=== PATIENT | female | born 1945 | race Caucasian/White ===

== ENCOUNTER 2022-12-23 09:35 | Inpatient (IN) | payer MEDICARE ==
[~2022-12-23] VITALS: Ht 162.6 cm; Wt 83.6 kg
[2022-12-23] VITALS (24 sets, daily range): BP systolic 62–122
[2022-12-23] MEDS ORDERED: NACL 0.9% 1,000 ML IV ONE ×2 (10:00→14:15)
[2022-12-23 10:39] LABS: BASOPHILS % (AUTO) 0.3 % (0.0-2.0); EOSINOPHILS % (AUTO) 0.3 % (0.0-4.0); HEMATOCRIT 42.5 % (36-48); HEMOGLOBIN 13.7 g/dL (12.0-16.0); LYMPHOCYTES # (AUTO) 0.9 K/uL (1.0-5.5); LYMPHOCYTES % (AUTO) 30.2 % (20.5-51.5); MEAN CORPUSCULAR HEMOGLOBIN 30 pg (27-31); MEAN CORPUSCULAR HGB CONC 32 % (32-36); MEAN CORPUSCULAR VOLUME 94 fL (79.0-98.0); MONOCYTES # (AUTO) 0.1 K/uL (0.0-1.0); MONOCYTES % (AUTO) 4.4 % (1.7-9.3); NEUTROPHILS % (AUTO) 64.8 % (40.0-70.0); PLATELET COUNT (AUTO) 204 K/uL (130-430); RED BLOOD CELL COUNT(AUTO) 4.54 MIL/uL (4.2-6.2)
[2022-12-23 10:47] LABS: ANION GAP 17 (5-15); CALCIUM 8.7 mg/dL (8.4-11.0); CHLORIDE 102 mmol/L (98-107); CREATININE 1.73 mg/dL (0.55-1.30); GLUCOSE 114 mg/dL (70-99); UREA NITROGEN, BLOOD 40 mg/dL (8-21)
[2022-12-23 10:51] LABS: ALANINE AMINOTRANSFERASE 29 U/L (12-78); ALBUMIN 3.6 g/dL (3.4-4.8); ASPARTATE AMINOTRANSFERASE 38 U/L (10-37); LIPASE 82 U/L (73-393); TOTAL BILIRUBIN 0.8 mg/dL (0.0-1.0)
[2022-12-23 11:58] LABS: BILIRUBIN,URINE NEGATIVE (NEGATIVE); BLOOD, URINE NEGATIVE (NEGATIVE); CLARITY/URINE CLEAR (CLEAR); COLOR,URINE YELLOW (YELLOW); GLUCOSE,URINE NEGATIVE (NEGATIVE); KETONES,URINE NEGATIVE (NEGATIVE); LEUKOCYTE ESTERASE ,URINE NEGATIVE (NEGATIVE); NITRITE, URINE NEGATIVE (NEGATIVE); PH,URINE 5.5 (5.0-8.0); PROTEIN URINE NEGATIVE (NEGATIVE); UROBILINOGEN,URINE 0.2 (0.2-1.0)
[2022-12-23] MEDS ORDERED: VANCOMYCIN HCL 1,000 MG in NS 250 ML IV ONE (12:30)
[2022-12-23] MEDS ORDERED: LORazepam 2 MG/ML VIAL IVP ONE (12:45)
[2022-12-23] MEDS ORDERED: metroNIDAZOLE 500 mg/NS 100 ML IV ONE (13:00)
[2022-12-23] MEDS ORDERED: LIP80 PO (13:45)
[2022-12-23] MEDS ORDERED: CYM30 PO (13:45)
[2022-12-23] MEDS ORDERED: CARV25TA55 PO (13:45)
[2022-12-23] MEDS ORDERED: ACYC400T19 PO (13:45)
[2022-12-23] MEDS ORDERED: APIX2.5T PO (13:45)
[2022-12-23] MEDS ORDERED: FURO-150 PO (13:45)
[2022-12-23] MEDS ORDERED: AMIO200T66 PO (13:45)
[2022-12-23] MEDS ORDERED: CAT3PAT TD (13:45)
[2022-12-23] MEDS ORDERED: GABA800T PO (13:45)
[2022-12-23] MEDS ORDERED: D5/0.45 NS 1,000 ML IV ONE (14:00)
[2022-12-23] MEDS ORDERED: NOREPINEPHRINE BITARTRATE 4 MG in NS 246 ML IV PRN ×2 (14:00→14:14)
[2022-12-23] MEDS ORDERED: PROPOFOL DRIP 100 ML IV PRN (14:00)
[2022-12-23] MEDS ORDERED: MIDAZOLAM IN NACL,ISO-OSMOT/PF 100 ML IV PRN (14:15)
[2022-12-23] MEDS ORDERED: LORAZEPAM IV PRN (14:15)
[2022-12-23] MEDS ORDERED: NS IV PRN (14:15)
[2022-12-23] MEDS ORDERED: SUCCINYLCHOLINE CHLORIDE 20 MG/ML(QUELICIN) IVP ONE ×2 (14:15→15:07)
[2022-12-23] MEDS ORDERED: ETOMIDATE 20 MG/ 10 ML VIAL (AMIDATE) IVP ONE (14:15)
[2022-12-23] MEDS: PROPOFOL DRIP 100 ML IV PRN (14:56)
[2022-12-23] MEDS ORDERED: NOREPINEPHRINE 4 MG/4 ML VIAL IV ONE ×2 (15:03→23:52)
[2022-12-23] MEDS ORDERED: VANCOMYCIN HCL 1000 MG/VIAL IV ONE (16:02)
[2022-12-23] MEDS ORDERED: ROCURONIUM BROMIDE 10 MG/ML (ZEMURON) ONE (17:30)
[2022-12-23] MEDS ORDERED: PROPOFOL 200MG/ 20ML VIAL (DIPRIVAN) IV ONE (17:30)
[2022-12-23] MEDS ORDERED: BUPIVACAINE /PF 0.25% 30 ML VIAL INJ ONE (17:30)
[2022-12-23] MEDS ORDERED: LR 1,000 ML IV.SOLN IV ONE (17:30)
[2022-12-23] MEDS ORDERED: NS IRRIG SOLN 1000 ML IR ONE (17:30)
[2022-12-23] MEDS ORDERED: LORazepam 2 MG/ML VIAL IVP PRN (18:30)
[2022-12-23] MEDS ORDERED: fentaNYL CITRATE/PF 100 MCG/2 ML AMP IVP PRN ×2 (18:30)
[2022-12-23] MEDS ORDERED: ONDANSETRON HCL 4 MG/2 ML VIAL IVP PRN (18:30)
[2022-12-23] MEDS ORDERED: FLUCONAZOLE IN NACL,ISO-OSM 200 ML IV SCH (19:15)
[2022-12-23] MEDS ORDERED: PHENTOLAMINE MESYLATE 5 MG VIAL INJ ONE ×2 (19:45→20:00)
[2022-12-23] MEDS ORDERED: TERBUTALINE SULFATE 1 MG/ML VIAL SUBCUT SCH (21:30)
[2022-12-23] MEDS ORDERED: TERBUTALINE SULFATE 1 MG/ML VIAL ONE (22:01)
[2022-12-24] VITALS (29 sets, daily range): BP systolic 84–125
[2022-12-24 00:13] LABS: BASOPHILS % (AUTO) 0.2 % (0.0-2.0); EOSINOPHILS % (AUTO) 0.1 % (0.0-4.0); HEMATOCRIT 42.8 % (36-48); HEMOGLOBIN 13.8 g/dL (12.0-16.0); LYMPHOCYTES # (AUTO) 1.3 K/uL (1.0-5.5); LYMPHOCYTES % (AUTO) 16.3 % (20.5-51.5); MEAN CORPUSCULAR HEMOGLOBIN 30 pg (27-31); MEAN CORPUSCULAR HGB CONC 32 % (32-36); MEAN CORPUSCULAR VOLUME 93 fL (79.0-98.0); MONOCYTES # (AUTO) 0.6 K/uL (0.0-1.0); MONOCYTES % (AUTO) 7.8 % (1.7-9.3); NEUTROPHILS # (AUTO) 5.9 K/uL (1.8-7.7); NEUTROPHILS % (AUTO) 75.6 % (40.0-70.0); PLATELET COUNT (AUTO) 206 K/uL (130-430); RED BLOOD CELL COUNT(AUTO) 4.62 MIL/uL (4.2-6.2); RED CELL DISTRIBUTION WIDTH 18.2 % (9.0-15.0); WHITE BLOOD COUNT (AUTO) 7.8 K/uL (4.8-10.8)
[2022-12-24 00:27] LABS: ANION GAP 16 (5-15); CALCIUM 7.5 mg/dL (8.4-11.0); CHLORIDE 106 mmol/L (98-107); CREATININE 2.41 mg/dL (0.55-1.30); GLUCOSE 99 mg/dL (70-99); UREA NITROGEN, BLOOD 42 mg/dL (8-21)
[2022-12-24 00:31] LABS: ALANINE AMINOTRANSFERASE 30 U/L (12-78); ALBUMIN 2.8 g/dL (3.4-4.8); ASPARTATE AMINOTRANSFERASE 52 U/L (10-37); PHOSPHORUS 5.7 mg/dL (2.7-4.5); TOTAL BILIRUBIN 0.7 mg/dL (0.0-1.0)
[2022-12-24 02:38] LABS: INR 1.4 (0.8-1.2)
[2022-12-24] MEDS ORDERED: NOREPINEPHRINE 4 MG/4 ML VIAL IV ONE (03:38)
[2022-12-24] MEDS: NOREPINEPHRINE BITARTRATE 16 MG in NS 234 ML IV PRN ×3 (03:43→21:19)
[2022-12-24 06:45] LABS: BASOPHILS % (AUTO) 0.2 % (0.0-2.0); HEMATOCRIT 41.8 % (36-48); HEMOGLOBIN 13.7 g/dL (12.0-16.0); LYMPHOCYTES # (AUTO) 1.9 K/uL (1.0-5.5); LYMPHOCYTES % (AUTO) 13.6 % (20.5-51.5); MEAN CORPUSCULAR HEMOGLOBIN 31 pg (27-31); MEAN CORPUSCULAR HGB CONC 33 % (32-36); MEAN CORPUSCULAR VOLUME 94 fL (79.0-98.0); MONOCYTES # (AUTO) 1.2 K/uL (0.0-1.0); MONOCYTES % (AUTO) 8.6 % (1.7-9.3); NEUTROPHILS # (AUTO) 10.8 K/uL (1.8-7.7); NEUTROPHILS % (AUTO) 77.6 % (40.0-70.0); PLATELET COUNT (AUTO) 204 K/uL (130-430); RED BLOOD CELL COUNT(AUTO) 4.47 MIL/uL (4.2-6.2); RED CELL DISTRIBUTION WIDTH 18.4 % (9.0-15.0)
[2022-12-24] MEDS: PROPOFOL DRIP 100 ML IV PRN ×2 (06:46→17:54)
[2022-12-24] MEDS: FLUCONAZOLE IN NACL,ISO-OSM 200 ML IV SCH (07:01)
[2022-12-24] MEDS ORDERED: NACL 0.9% 1,000 ML IV ONE (07:30)
[2022-12-24 07:47] LABS: ALANINE AMINOTRANSFERASE 33 U/L (12-78); ALBUMIN 2.6 g/dL (3.4-4.8); ANION GAP 19 (5-15); ASPARTATE AMINOTRANSFERASE 55 U/L (10-37); CALCIUM 8.1 mg/dL (8.4-11.0); CHLORIDE 106 mmol/L (98-107); CREATININE 2.44 mg/dL (0.55-1.30); GLUCOSE 79 mg/dL (70-99); PHOSPHORUS 5.2 mg/dL (2.7-4.5); TOTAL BILIRUBIN 0.7 mg/dL (0.0-1.0); UREA NITROGEN, BLOOD 43 mg/dL (8-21)
[2022-12-24] MEDS ORDERED: COMMUNICATION ORDER XX ONE (08:30)
[2022-12-24] MEDS: D5/0.45 NS 1,000 ML IV SCH ×2 (09:15→19:26)
[2022-12-24] MEDS: metroNIDAZOLE 500 mg/NS 100 ML PREMIX IV SCH ×2 (13:42→21:18)
[2022-12-24] MEDS ORDERED: AZTREONAM 1 GM VIAL ONE (21:40)
[2022-12-24] MEDS: AZTREONAM 0.5 GM in NS 50 ML IV SCH (22:14)
[2022-12-25] VITALS (29 sets, daily range): BP systolic 98–147
[2022-12-25] MEDS: PROPOFOL DRIP 100 ML IV PRN (04:58)
[2022-12-25] MEDS: NOREPINEPHRINE BITARTRATE 16 MG in NS 234 ML IV PRN (05:00)
[2022-12-25] MEDS: D5/0.45 NS 1,000 ML IV SCH (05:50)
[2022-12-25] MEDS: metroNIDAZOLE 500 mg/NS 100 ML PREMIX IV SCH ×3 (05:51→22:00)
[2022-12-25] MEDS: AZTREONAM 0.5 GM in NS 50 ML IV SCH ×3 (05:51→22:00)
[2022-12-25] MEDS: FLUCONAZOLE IN NACL,ISO-OSM 200 ML IV SCH (05:52)
[2022-12-25 06:24] LABS: BASOPHILS % (AUTO) 0.3 % (0.0-2.0); HEMATOCRIT 38.6 % (36-48); HEMOGLOBIN 12.6 g/dL (12.0-16.0); LYMPHOCYTES # (AUTO) 1.2 K/uL (1.0-5.5); LYMPHOCYTES % (AUTO) 7.9 % (20.5-51.5); MEAN CORPUSCULAR HEMOGLOBIN 30 pg (27-31); MEAN CORPUSCULAR HGB CONC 33 % (32-36); MEAN CORPUSCULAR VOLUME 91 fL (79.0-98.0); MONOCYTES # (AUTO) 0.9 K/uL (0.0-1.0); MONOCYTES % (AUTO) 6.2 % (1.7-9.3); NEUTROPHILS # (AUTO) 12.5 K/uL (1.8-7.7); NEUTROPHILS % (AUTO) 85.6 % (40.0-70.0); PLATELET COUNT (AUTO) 153 K/uL (130-430); RED BLOOD CELL COUNT(AUTO) 4.22 MIL/uL (4.2-6.2); RED CELL DISTRIBUTION WIDTH 18.9 % (9.0-15.0); WHITE BLOOD COUNT (AUTO) 14.6 K/uL (4.8-10.8)
[2022-12-25 06:54] LABS: ANION GAP 18 (5-15); CALCIUM 7.9 mg/dL (8.4-11.0); CHLORIDE 107 mmol/L (98-107); CREATININE 2.99 mg/dL (0.55-1.30); GLUCOSE 89 mg/dL (70-99); PHOSPHORUS 5.2 mg/dL (2.7-4.5); UREA NITROGEN, BLOOD 54 mg/dL (8-21)
[2022-12-25 07:13] LABS: C-REACTIVE PROTEIN QUANT 32.4 mg/dL (0-0.5)
[2022-12-25 08:43] LABS: ERYTHROCYTE SEDIMENTATION RATE 16 MM/HR (0-20)
[2022-12-25] MEDS ORDERED: *TPN PER PHARMACY XX PRN (11:15)
[2022-12-25] MEDS: DEXTROSE 50% JECT 50 ML DISP.SYRIN IVP PRN ×2 (12:23→15:05)
[2022-12-25] MEDS: D5W 1,000 ML IV SCH (15:30)
[2022-12-25] MEDS ORDERED: SODIUM ACETATE IV SCH ×7 (21:00)
[2022-12-25] MEDS ORDERED: TPN NEPHRAMINE IV SCH ×7 (21:00)
[2022-12-25] MEDS ORDERED: [UNRECOGNIZED DRUG - OTHER] IV SCH ×7 (21:00)
[2022-12-25] MEDS ORDERED: MAGNESIUM SULFATE IV SCH ×7 (21:00)
[2022-12-26] VITALS (36 sets, daily range): BP systolic 84–183
[2022-12-26] MEDS: D5W 1,000 ML IV SCH ×3 (01:39→20:48)
[2022-12-26] MEDS: FLUCONAZOLE IN NACL,ISO-OSM 200 ML IV SCH (05:25)
[2022-12-26] MEDS: metroNIDAZOLE 500 mg/NS 100 ML PREMIX IV SCH ×3 (05:25→21:03)
[2022-12-26] MEDS: AZTREONAM 0.5 GM in NS 50 ML IV SCH ×3 (05:25→21:03)
[2022-12-26 06:20] LABS: BASOPHILS % (AUTO) 0.3 % (0.0-2.0); EOSINOPHILS % (AUTO) 0.2 % (0.0-4.0); HEMATOCRIT 33.7 % (36-48); HEMOGLOBIN 11.2 g/dL (12.0-16.0); LYMPHOCYTES # (AUTO) 0.7 K/uL (1.0-5.5); LYMPHOCYTES % (AUTO) 9.4 % (20.5-51.5); MEAN CORPUSCULAR HEMOGLOBIN 30 pg (27-31); MEAN CORPUSCULAR HGB CONC 33 % (32-36); MEAN CORPUSCULAR VOLUME 92 fL (79.0-98.0); MONOCYTES # (AUTO) 0.3 K/uL (0.0-1.0); MONOCYTES % (AUTO) 4.1 % (1.7-9.3); NEUTROPHILS # (AUTO) 6.2 K/uL (1.8-7.7); PLATELET COUNT (AUTO) 103 K/uL (130-430); RED BLOOD CELL COUNT(AUTO) 3.68 MIL/uL (4.2-6.2); RED CELL DISTRIBUTION WIDTH 18.2 % (9.0-15.0); WHITE BLOOD COUNT (AUTO) 7.2 K/uL (4.8-10.8)
[2022-12-26 06:45] LABS: ALANINE AMINOTRANSFERASE 20 U/L (12-78); ALBUMIN 1.7 g/dL (3.4-4.8); ANION GAP 14 (5-15); ASPARTATE AMINOTRANSFERASE 24 U/L (10-37); CALCIUM 7.7 mg/dL (8.4-11.0); CHLORIDE 108 mmol/L (98-107); GLUCOSE 132 mg/dL (70-99); PHOSPHORUS 2.2 mg/dL (2.7-4.5); TOTAL BILIRUBIN 0.4 mg/dL (0.0-1.0); TRIGLYCERIDES 148 mg/dL (30-150); UREA NITROGEN, BLOOD 49 mg/dL (8-21)
[2022-12-26] MEDS ORDERED: KCL 40 mEq in 100 mL (PREMIX) 100 ML IV ONE (08:00)
[2022-12-26 08:27] LABS: C-REACTIVE PROTEIN QUANT 27.2 mg/dL (0-0.5)
[2022-12-26 09:44] LABS: ERYTHROCYTE SEDIMENTATION RATE 23 MM/HR (0-20)
[2022-12-26] MEDS ORDERED: K PHOS 15 MM in NS 250 ML IV ONE (12:00)
[2022-12-26] MEDS: PROPOFOL DRIP 100 ML IV PRN (15:05)
[2022-12-26] MEDS ORDERED: TPN NEPHRAMINE IV SCH ×9 (21:00)
[2022-12-26] MEDS ORDERED: MAGNESIUM SULFATE IV SCH ×9 (21:00)
[2022-12-26] MEDS ORDERED: [UNRECOGNIZED DRUG - OTHER] IV SCH ×9 (21:00)
[2022-12-26] MEDS ORDERED: SODIUM ACETATE IV SCH ×9 (21:00)
[2022-12-27] VITALS (40 sets, daily range): BP systolic 81–181
[2022-12-27] MEDS: FENTANYL CITRATE-0.9 % NACL/PF 100 ML IV PRN ×2 (04:10→21:49)
[2022-12-27] MEDS: AZTREONAM 0.5 GM in NS 50 ML IV SCH ×3 (06:21→21:46)
[2022-12-27] MEDS: metroNIDAZOLE 500 mg/NS 100 ML PREMIX IV SCH ×3 (06:21→21:47)
[2022-12-27] MEDS: FLUCONAZOLE IN NACL,ISO-OSM 200 ML IV SCH (06:22)
[2022-12-27] MEDS: D5W 1,000 ML IV SCH ×3 (06:22→22:23)
[2022-12-27 07:26] LABS: ALANINE AMINOTRANSFERASE 20 U/L (12-78); ALBUMIN 1.6 g/dL (3.4-4.8); ANION GAP 14 (5-15); ASPARTATE AMINOTRANSFERASE 23 U/L (10-37); C-REACTIVE PROTEIN QUANT 14.9 mg/dL (0-0.5); CALCIUM 7.5 mg/dL (8.4-11.0); CHLORIDE 108 mmol/L (98-107); CREATININE 1.11 mg/dL (0.55-1.30); GLUCOSE 166 mg/dL (70-99); TOTAL BILIRUBIN 0.7 mg/dL (0.0-1.0); UREA NITROGEN, BLOOD 38 mg/dL (8-21)
[2022-12-27 09:20] LABS: BASOPHILS % (AUTO) 0.2 % (0.0-2.0); EOSINOPHILS % (AUTO) 0.3 % (0.0-4.0); HEMATOCRIT 33.2 % (36-48); HEMOGLOBIN 11.3 g/dL (12.0-16.0); LYMPHOCYTES # (AUTO) 1.2 K/uL (1.0-5.5); LYMPHOCYTES % (AUTO) 14.1 % (20.5-51.5); MEAN CORPUSCULAR HEMOGLOBIN 31 pg (27-31); MEAN CORPUSCULAR HGB CONC 34 % (32-36); MEAN CORPUSCULAR VOLUME 89 fL (79.0-98.0); MONOCYTES # (AUTO) 0.5 K/uL (0.0-1.0); MONOCYTES % (AUTO) 6.5 % (1.7-9.3); NEUTROPHILS # (AUTO) 6.5 K/uL (1.8-7.7); NEUTROPHILS % (AUTO) 78.9 % (40.0-70.0); PLATELET COUNT (AUTO) 95 K/uL (130-430); RED BLOOD CELL COUNT(AUTO) 3.71 MIL/uL (4.2-6.2); RED CELL DISTRIBUTION WIDTH 17.6 % (9.0-15.0); WHITE BLOOD COUNT (AUTO) 8.2 K/uL (4.8-10.8)
[2022-12-27 09:33] LABS: ERYTHROCYTE SEDIMENTATION RATE 23 MM/HR (0-20)
[2022-12-27] MEDS ORDERED: K PHOS 15 MM in NS 250 ML IV ONE (10:15)
[2022-12-27] MEDS ORDERED: POTASSIUM ACETATE IV SCH ×9 (21:00)
[2022-12-27] MEDS ORDERED: TPN NEPHRAMINE IV SCH ×9 (21:00)
[2022-12-27] MEDS ORDERED: [UNRECOGNIZED DRUG - OTHER] IV SCH ×9 (21:00)
[2022-12-27] MEDS ORDERED: SODIUM ACETATE IV SCH ×9 (21:00)
[2022-12-27] MEDS: INSULIN REGULAR, HUMAN 100 UNITS/ML, 3 ML VIAL (humuLIN R) SUBCUT PRN (23:46)
[2022-12-28] VITALS (30 sets, daily range): BP systolic 71–187
[2022-12-28] MEDS: AZTREONAM 0.5 GM in NS 50 ML IV SCH ×3 (05:20→21:23)
[2022-12-28] MEDS: FLUCONAZOLE IN NACL,ISO-OSM 200 ML IV SCH (05:20)
[2022-12-28] MEDS: metroNIDAZOLE 500 mg/NS 100 ML PREMIX IV SCH ×3 (05:20→23:01)
[2022-12-28 06:08] LABS: BASOPHILS % (AUTO) 0.3 % (0.0-2.0); EOSINOPHILS % (AUTO) 0.3 % (0.0-4.0); HEMATOCRIT 32.3 % (36-48); HEMOGLOBIN 10.9 g/dL (12.0-16.0); LYMPHOCYTES # (AUTO) 1.2 K/uL (1.0-5.5); MEAN CORPUSCULAR HEMOGLOBIN 31 pg (27-31); MEAN CORPUSCULAR HGB CONC 34 % (32-36); MEAN CORPUSCULAR VOLUME 91 fL (79.0-98.0); MONOCYTES # (AUTO) 0.7 K/uL (0.0-1.0); MONOCYTES % (AUTO) 8.2 % (1.7-9.3); NEUTROPHILS # (AUTO) 6.2 K/uL (1.8-7.7); NEUTROPHILS % (AUTO) 76.2 % (40.0-70.0); PLATELET COUNT (AUTO) 79 K/uL (130-430); RED BLOOD CELL COUNT(AUTO) 3.54 MIL/uL (4.2-6.2); RED CELL DISTRIBUTION WIDTH 17.2 % (9.0-15.0); WHITE BLOOD COUNT (AUTO) 8.1 K/uL (4.8-10.8)
[2022-12-28 06:40] LABS: ALANINE AMINOTRANSFERASE 19 U/L (12-78); ALBUMIN 1.6 g/dL (3.4-4.8); ANION GAP 9 (5-15); ASPARTATE AMINOTRANSFERASE 24 U/L (10-37); C-REACTIVE PROTEIN QUANT 13.4 mg/dL (0-0.5); CALCIUM 7.5 mg/dL (8.4-11.0); CHLORIDE 107 mmol/L (98-107); CREATININE 0.88 mg/dL (0.55-1.30); GLUCOSE 143 mg/dL (70-99); PHOSPHORUS 2.4 mg/dL (2.7-4.5); TOTAL BILIRUBIN 0.4 mg/dL (0.0-1.0); UREA NITROGEN, BLOOD 30 mg/dL (8-21)
[2022-12-28 07:16] LABS: ERYTHROCYTE SEDIMENTATION RATE 34 MM/HR (0-20)
[2022-12-28] MEDS ORDERED: K PHOS 15 MM in NS 250 ML IV ONE (11:00)
[2022-12-28] MEDS: D5W 1,000 ML IV SCH ×2 (12:18→23:02)
[2022-12-28] MEDS: NOREPINEPHRINE BITARTRATE 16 MG in NS 234 ML IV PRN (15:14)
[2022-12-28] MEDS: INSULIN REGULAR, HUMAN 100 UNITS/ML, 3 ML VIAL (humuLIN R) SUBCUT PRN (18:26)
[2022-12-28] MEDS ORDERED: SODIUM ACETATE IV SCH ×9 (21:00)
[2022-12-28] MEDS ORDERED: [UNRECOGNIZED DRUG - OTHER] IV SCH ×9 (21:00)
[2022-12-28] MEDS ORDERED: TPN NEPHRAMINE IV SCH ×9 (21:00)
[2022-12-28] MEDS ORDERED: POTASSIUM ACETATE IV SCH ×9 (21:00)
[2022-12-29] VITALS (23 sets, daily range): BP systolic 111–151
[2022-12-29] MEDS: metroNIDAZOLE 500 mg/NS 100 ML PREMIX IV SCH ×3 (05:05→21:47)
[2022-12-29] MEDS: AZTREONAM 0.5 GM in NS 50 ML IV SCH ×3 (05:40→20:48)
[2022-12-29 06:18] LABS: BASOPHILS % (AUTO) 0.1 % (0.0-2.0); EOSINOPHILS % (AUTO) 0.4 % (0.0-4.0); HEMATOCRIT 29.8 % (36-48); HEMOGLOBIN 10.2 g/dL (12.0-16.0); LYMPHOCYTES # (AUTO) 1.3 K/uL (1.0-5.5); LYMPHOCYTES % (AUTO) 15.3 % (20.5-51.5); MEAN CORPUSCULAR HEMOGLOBIN 31 pg (27-31); MEAN CORPUSCULAR HGB CONC 34 % (32-36); MEAN CORPUSCULAR VOLUME 90 fL (79.0-98.0); MONOCYTES # (AUTO) 0.6 K/uL (0.0-1.0); MONOCYTES % (AUTO) 7.3 % (1.7-9.3); NEUTROPHILS # (AUTO) 6.5 K/uL (1.8-7.7); NEUTROPHILS % (AUTO) 76.9 % (40.0-70.0); PLATELET COUNT (AUTO) 76 K/uL (130-430); RED CELL DISTRIBUTION WIDTH 16.9 % (9.0-15.0); WHITE BLOOD COUNT (AUTO) 8.5 K/uL (4.8-10.8)
[2022-12-29] MEDS: FLUCONAZOLE IN NACL,ISO-OSM 200 ML IV SCH (06:46)
[2022-12-29 07:05] LABS: ANION GAP 10 (5-15); C-REACTIVE PROTEIN QUANT 10.4 mg/dL (0-0.5); CALCIUM 7.3 mg/dL (8.4-11.0); CHLORIDE 105 mmol/L (98-107); CREATININE 0.71 mg/dL (0.55-1.30); GLUCOSE 152 mg/dL (70-99); PHOSPHORUS 1.7 mg/dL (2.7-4.5); UREA NITROGEN, BLOOD 22 mg/dL (8-21)
[2022-12-29 07:31] LABS: ERYTHROCYTE SEDIMENTATION RATE 46 MM/HR (0-20)
[2022-12-29] MEDS ORDERED: NA PHOS 15 MM in NS 250 ML IV ONE (11:00)
[2022-12-29] MEDS: INSULIN REGULAR, HUMAN 100 UNITS/ML, 3 ML VIAL (humuLIN R) SUBCUT PRN (11:02)
[2022-12-29] MEDS ORDERED: TPN NEPHRAMINE IV SCH ×18 (21:00)
[2022-12-29] MEDS ORDERED: SODIUM ACETATE IV SCH ×18 (21:00)
[2022-12-29] MEDS ORDERED: POTASSIUM ACETATE IV SCH ×18 (21:00)
[2022-12-29] MEDS ORDERED: [UNRECOGNIZED DRUG - OTHER] IV SCH ×18 (21:00)
[2022-12-30] VITALS (24 sets, daily range): BP systolic 72–173
[2022-12-30] MEDS: D5W 1,000 ML IV SCH ×2 (01:16→21:06)
[2022-12-30] MEDS ORDERED: cloNIDine HCL 0.1 MG TABLET PO PRN (02:30)
[2022-12-30] MEDS: ACETAMINOPHEN 325 MG TABLET PO PRN (02:46)
[2022-12-30] MEDS: metroNIDAZOLE 500 mg/NS 100 ML PREMIX IV SCH ×3 (05:01→22:15)
[2022-12-30] MEDS: AZTREONAM 0.5 GM in NS 50 ML IV SCH ×3 (06:00→21:06)
[2022-12-30] MEDS: INSULIN REGULAR, HUMAN 100 UNITS/ML, 3 ML VIAL (humuLIN R) SUBCUT PRN (06:01)
[2022-12-30 06:25] LABS: BASOPHILS % (AUTO) 0.4 % (0.0-2.0); EOSINOPHILS % (AUTO) 0.4 % (0.0-4.0); HEMATOCRIT 28.3 % (36-48); HEMOGLOBIN 9.9 g/dL (12.0-16.0); LYMPHOCYTES # (AUTO) 0.9 K/uL (1.0-5.5); LYMPHOCYTES % (AUTO) 13.1 % (20.5-51.5); MEAN CORPUSCULAR HEMOGLOBIN 31 pg (27-31); MEAN CORPUSCULAR HGB CONC 35 % (32-36); MEAN CORPUSCULAR VOLUME 89 fL (79.0-98.0); MONOCYTES # (AUTO) 0.3 K/uL (0.0-1.0); MONOCYTES % (AUTO) 4.1 % (1.7-9.3); NEUTROPHILS # (AUTO) 5.6 K/uL (1.8-7.7); PLATELET COUNT (AUTO) 79 K/uL (130-430); RED BLOOD CELL COUNT(AUTO) 3.18 MIL/uL (4.2-6.2); RED CELL DISTRIBUTION WIDTH 16.1 % (9.0-15.0); WHITE BLOOD COUNT (AUTO) 6.9 K/uL (4.8-10.8)
[2022-12-30] MEDS: FLUCONAZOLE IN NACL,ISO-OSM 200 ML IV SCH (06:31)
[2022-12-30 07:13] LABS: ALANINE AMINOTRANSFERASE 11 U/L (12-78); ALBUMIN 1.3 g/dL (3.4-4.8); ANION GAP 10 (5-15); ASPARTATE AMINOTRANSFERASE 26 U/L (10-37); C-REACTIVE PROTEIN QUANT 7.2 mg/dL (0-0.5); CALCIUM 7.4 mg/dL (8.4-11.0); CHLORIDE 105 mmol/L (98-107); CREATININE 0.63 mg/dL (0.55-1.30); GLUCOSE 162 mg/dL (70-99); TOTAL BILIRUBIN 0.3 mg/dL (0.0-1.0); UREA NITROGEN, BLOOD 14 mg/dL (8-21)
[2022-12-30 07:17] LABS: ERYTHROCYTE SEDIMENTATION RATE 47 MM/HR (0-20)
[2022-12-30] MEDS: CARVEDILOL 25 MG TABLET (COREG) PO SCH ×2 (08:29→21:00)
[2022-12-30] MEDS ORDERED: K PHOS 15 MM in NS 250 ML IV ONE (09:15)
[2022-12-30] MEDS ORDERED: traZODone HCL 50 MG TABLET (DESYREL) PO PRN (09:15)
[2022-12-30] MEDS ORDERED: NACL 0.9% 1,000 ML IV ONE (12:45)
[2022-12-30] MEDS: GABAPENTIN 400 MG CAPSULE PO SCH ×3 (15:00→21:00)
[2022-12-30] MEDS ORDERED: NOREPINEPHRINE BITARTRATE 4 MG in D5W 246 ML IV PRN (18:30)
[2022-12-30] MEDS ORDERED: NOREPINEPHRINE 4 MG/4 ML VIAL IV ONE (18:37)
[2022-12-30] MEDS: APIXABAN 2.5 MG TABLET PO SCH (21:00)
[2022-12-30] MEDS: traZODone HCL 50 MG TABLET (DESYREL) PO SCH (21:00)
[2022-12-30] MEDS ORDERED: CARVEDILOL 25 MG TABLET (COREG) PO SCH (21:00)
[2022-12-30] MEDS: ACYCLOVIR 400 MG TABLET PO SCH (21:00)
[2022-12-30] MEDS: DULoxetine HCL 20 MG CAPSULE.DR PO SCH (21:00)
[2022-12-30] MEDS ORDERED: K PHOS IV SCH ×9 (21:00)
[2022-12-30] MEDS: ATORVASTATIN 20 MG TABLET PO SCH (21:00)
[2022-12-30] MEDS ORDERED: [UNRECOGNIZED DRUG - OTHER] IV SCH ×9 (21:00)
[2022-12-30] MEDS ORDERED: SODIUM ACETATE IV SCH ×9 (21:00)
[2022-12-30] MEDS ORDERED: POTASSIUM ACETATE IV SCH ×9 (21:00)
[2022-12-30] MEDS ORDERED: TPN CENTRAL IV SCH ×9 (21:00)
[2022-12-31] VITALS (18 sets, daily range): BP systolic 118–153
[2022-12-31] MEDS: AZTREONAM 0.5 GM in NS 50 ML IV SCH (05:27)
[2022-12-31] MEDS: metroNIDAZOLE 500 mg/NS 100 ML PREMIX IV SCH (06:01)
[2022-12-31 07:50] LABS: BASOPHILS % (AUTO) 0.2 % (0.0-2.0); EOSINOPHILS % (AUTO) 0.6 % (0.0-4.0); HEMATOCRIT 27.6 % (36-48); HEMOGLOBIN 9.6 g/dL (12.0-16.0); LYMPHOCYTES # (AUTO) 1.3 K/uL (1.0-5.5); LYMPHOCYTES % (AUTO) 17.7 % (20.5-51.5); MEAN CORPUSCULAR HEMOGLOBIN 31 pg (27-31); MEAN CORPUSCULAR HGB CONC 35 % (32-36); MEAN CORPUSCULAR VOLUME 88 fL (79.0-98.0); MONOCYTES # (AUTO) 0.4 K/uL (0.0-1.0); MONOCYTES % (AUTO) 5.2 % (1.7-9.3); NEUTROPHILS # (AUTO) 5.8 K/uL (1.8-7.7); NEUTROPHILS % (AUTO) 76.3 % (40.0-70.0); PLATELET COUNT (AUTO) 119 K/uL (130-430); RED BLOOD CELL COUNT(AUTO) 3.12 MIL/uL (4.2-6.2); RED CELL DISTRIBUTION WIDTH 16.4 % (9.0-15.0); WHITE BLOOD COUNT (AUTO) 7.6 K/uL (4.8-10.8)
[2022-12-31 08:42] LABS: ERYTHROCYTE SEDIMENTATION RATE 57 MM/HR (0-20)
[2022-12-31] MEDS: APIXABAN 2.5 MG TABLET PO SCH ×2 (09:00→21:11)
[2022-12-31] MEDS: FUROSEMIDE 20 MG TABLET PO SCH (09:00)
[2022-12-31] MEDS: ACYCLOVIR 400 MG TABLET PO SCH ×2 (09:00→21:12)
[2022-12-31] MEDS: GABAPENTIN 400 MG CAPSULE PO SCH ×3 (09:00→21:10)
[2022-12-31] MEDS: CARVEDILOL 25 MG TABLET (COREG) PO SCH ×2 (09:00→21:11)
[2022-12-31 09:11] LABS: ALANINE AMINOTRANSFERASE 22 U/L (12-78); ALBUMIN 1.3 g/dL (3.4-4.8); ANION GAP 9 (5-15); ASPARTATE AMINOTRANSFERASE 34 U/L (10-37); C-REACTIVE PROTEIN QUANT 5.2 mg/dL (0-0.5); CALCIUM 7.1 mg/dL (8.4-11.0); CHLORIDE 104 mmol/L (98-107); CREATININE 0.48 mg/dL (0.55-1.30); GLUCOSE 140 mg/dL (70-99); PHOSPHORUS 2.4 mg/dL (2.7-4.5); TOTAL BILIRUBIN 0.2 mg/dL (0.0-1.0); UREA NITROGEN, BLOOD 16 mg/dL (8-21)
[2022-12-31] MEDS ORDERED: NA PHOS 15 MM in NS 250 ML IV ONE (13:00)
[2022-12-31] MEDS: D5W 1,000 ML IV SCH (17:39)
[2022-12-31] MEDS: traZODone HCL 50 MG TABLET (DESYREL) PO SCH (21:12)
[2022-12-31] MEDS: ATORVASTATIN 20 MG TABLET PO SCH (21:12)
[2022-12-31] MEDS: DULoxetine HCL 20 MG CAPSULE.DR PO SCH (21:12)
[2022-12-31] MEDS: [UNRECOGNIZED DRUG - OTHER] IV SCH ×9 (21:18)
[2022-12-31] MEDS: POTASSIUM ACETATE IV SCH ×9 (21:18)
[2022-12-31] MEDS: TPN CENTRAL IV SCH ×9 (21:18)
[2022-12-31] MEDS: K PHOS IV SCH ×9 (21:18)
[2022-12-31] MEDS: SODIUM ACETATE IV SCH ×9 (21:18)
[2023-01-01 01:21] VITALS: BP_SYST 131
[2023-01-01 08:03] VITALS: BP_SYST 131
[2023-01-01] MEDS: APIXABAN 2.5 MG TABLET PO SCH (08:48)
[2023-01-01] MEDS: CARVEDILOL 25 MG TABLET (COREG) PO SCH ×2 (08:48→21:00)
[2023-01-01] MEDS: FUROSEMIDE 20 MG TABLET PO SCH (08:49)
[2023-01-01] MEDS: GABAPENTIN 400 MG CAPSULE PO SCH ×3 (08:49→21:00)
[2023-01-01] MEDS: ACYCLOVIR 400 MG TABLET PO SCH ×2 (08:49→22:25)
[2023-01-01 09:08] LABS: BASOPHILS % (AUTO) 0.3 % (0.0-2.0); EOSINOPHILS % (AUTO) 0.6 % (0.0-4.0); LYMPHOCYTES # (AUTO) 1.1 K/uL (1.0-5.5); LYMPHOCYTES % (AUTO) 20.6 % (20.5-51.5); MEAN CORPUSCULAR HEMOGLOBIN 31 pg (27-31); MEAN CORPUSCULAR HGB CONC 34 % (32-36); MEAN CORPUSCULAR VOLUME 92 fL (79.0-98.0); MONOCYTES # (AUTO) 0.3 K/uL (0.0-1.0); MONOCYTES % (AUTO) 5.2 % (1.7-9.3); NEUTROPHILS # (AUTO) 4.1 K/uL (1.8-7.7); NEUTROPHILS % (AUTO) 73.3 % (40.0-70.0); PLATELET COUNT (AUTO) 128 K/uL (130-430); RED BLOOD CELL COUNT(AUTO) 2.29 MIL/uL (4.2-6.2); RED CELL DISTRIBUTION WIDTH 16.3 % (9.0-15.0); WHITE BLOOD COUNT (AUTO) 5.5 K/uL (4.8-10.8)
[2023-01-01 09:20] VITALS: BP_SYST 131
[2023-01-01 09:37] LABS: HEMATOCRIT 20.9 % (36-48)
[2023-01-01 11:32] VITALS: BP_SYST 140
[2023-01-01 11:39] LABS: ALANINE AMINOTRANSFERASE 8 U/L (12-78); ALBUMIN 0.8 g/dL (3.4-4.8); ANION GAP 6 (5-15); ASPARTATE AMINOTRANSFERASE 29 U/L (10-37); CHLORIDE 111 mmol/L (98-107); CREATININE 0.31 mg/dL (0.55-1.30); GLUCOSE 101 mg/dL (70-99); PHOSPHORUS 2.4 mg/dL (2.7-4.5); TOTAL BILIRUBIN 0.2 mg/dL (0.0-1.0); UREA NITROGEN, BLOOD 14 mg/dL (8-21)
[2023-01-01 12:52] LABS: CALCIUM 5.7 mg/dL (8.4-11.0)
[2023-01-01] MEDS ORDERED: CALCIUM GLUCONATE 2 GM in NS 100 ML IV ONE (13:15)
[2023-01-01 17:15] VITALS: BP_SYST 126
[2023-01-01 20:11] VITALS: BP_SYST 131
[2023-01-01] MEDS: D5W 1,000 ML IV SCH (20:55)
[2023-01-01] MEDS: DULoxetine HCL 20 MG CAPSULE.DR PO SCH (21:00)
[2023-01-01] MEDS: ATORVASTATIN 20 MG TABLET PO SCH (21:00)
[2023-01-01] MEDS: traZODone HCL 50 MG TABLET (DESYREL) PO SCH (21:00)
[2023-01-01] MEDS: SODIUM ACETATE IV SCH ×9 (22:23)
[2023-01-01] MEDS: POTASSIUM ACETATE IV SCH ×9 (22:23)
[2023-01-01] MEDS: TPN CENTRAL IV SCH ×9 (22:23)
[2023-01-01] MEDS: [UNRECOGNIZED DRUG - OTHER] IV SCH ×9 (22:23)
[2023-01-01] MEDS: K PHOS IV SCH ×9 (22:23)
[2023-01-02] MEDS: D5W 1,000 ML IV SCH ×2 (00:29→13:35)
[2023-01-02 01:40] VITALS: BP_SYST 123
[2023-01-02 07:04] LABS: BASOPHILS % (AUTO) 0.4 % (0.0-2.0); EOSINOPHILS # (AUTO) 0.1 K/uL (0.0-0.4); EOSINOPHILS % (AUTO) 0.8 % (0.0-4.0); HEMOGLOBIN 9.1 g/dL (12.0-16.0); LYMPHOCYTES # (AUTO) 1.9 K/uL (1.0-5.5); LYMPHOCYTES % (AUTO) 28.2 % (20.5-51.5); MEAN CORPUSCULAR HEMOGLOBIN 30 pg (27-31); MEAN CORPUSCULAR HGB CONC 34 % (32-36); MEAN CORPUSCULAR VOLUME 90 fL (79.0-98.0); MONOCYTES # (AUTO) 0.4 K/uL (0.0-1.0); MONOCYTES % (AUTO) 6.3 % (1.7-9.3); NEUTROPHILS # (AUTO) 4.3 K/uL (1.8-7.7); NEUTROPHILS % (AUTO) 64.3 % (40.0-70.0); PLATELET COUNT (AUTO) 215 K/uL (130-430); RED BLOOD CELL COUNT(AUTO) 3.01 MIL/uL (4.2-6.2); RED CELL DISTRIBUTION WIDTH 15.8 % (9.0-15.0); WHITE BLOOD COUNT (AUTO) 6.7 K/uL (4.8-10.8)
[2023-01-02 07:40] LABS: ALBUMIN 1.2 g/dL (3.4-4.8); ANION GAP 5 (5-15); CALCIUM 7.7 mg/dL (8.4-11.0); CHLORIDE 102 mmol/L (98-107); CREATININE 0.48 mg/dL (0.55-1.30); GLUCOSE 132 mg/dL (70-99); PHOSPHORUS 3.5 mg/dL (2.7-4.5); TOTAL BILIRUBIN 0.2 mg/dL (0.0-1.0); UREA NITROGEN, BLOOD 20 mg/dL (8-21)
[2023-01-02 08:09] LABS: ALANINE AMINOTRANSFERASE 27 U/L (12-78); ASPARTATE AMINOTRANSFERASE 45 U/L (10-37)
[2023-01-02] MEDS: AMIODARONE HCL 200 MG TABLET PO SCH (09:00)
[2023-01-02] MEDS: CARVEDILOL 25 MG TABLET (COREG) PO SCH ×2 (09:00→20:42)
[2023-01-02] MEDS: GABAPENTIN 400 MG CAPSULE PO SCH ×3 (09:00→20:42)
[2023-01-02] MEDS: FUROSEMIDE 20 MG TABLET PO SCH (09:00)
[2023-01-02 09:15] VITALS: BP_SYST 137
[2023-01-02] MEDS ORDERED: GASTROGRAFIN 120 ML ONE (10:03)
[2023-01-02] MEDS ORDERED: PANTOPRAZOLE SODIUM 40 MG TAB PO ONE (10:45)
[2023-01-02 11:15] VITALS: BP_SYST 136
[2023-01-02 15:05] VITALS: BP_SYST 127
[2023-01-02] MEDS ORDERED: PRO40 PO (15:12)
[2023-01-02 20:00] VITALS: BP_SYST 111
[2023-01-02] MEDS: traZODone HCL 50 MG TABLET (DESYREL) PO SCH (20:42)
[2023-01-02] MEDS: ATORVASTATIN 20 MG TABLET PO SCH (20:42)
[2023-01-02] MEDS: DULoxetine HCL 20 MG CAPSULE.DR PO SCH (20:42)
[2023-01-02] MEDS: SODIUM CHLORIDE IV SCH ×9 (21:00)
[2023-01-02] MEDS: [UNRECOGNIZED DRUG - OTHER] IV SCH ×9 (21:00)
[2023-01-02] MEDS: POTASSIUM ACETATE IV SCH ×9 (21:00)
[2023-01-02] MEDS: TPN CENTRAL IV SCH ×9 (21:00)
[2023-01-03] VITALS: BP_SYST 121
[2023-01-03 04:29] VITALS: BP_SYST 117
[2023-01-03] MEDS: [UNRECOGNIZED DRUG - OTHER] IV SCH ×9 (06:30)
[2023-01-03] MEDS: POTASSIUM ACETATE IV SCH ×9 (06:30)
[2023-01-03] MEDS: TPN CENTRAL IV SCH ×9 (06:30)
[2023-01-03] MEDS: SODIUM CHLORIDE IV SCH ×9 (06:30)
[2023-01-03] MEDS: D5W 1,000 ML IV SCH ×2 (06:39→21:37)
[2023-01-03 07:39] LABS: ALANINE AMINOTRANSFERASE 35 U/L (12-78); ALBUMIN 1.2 g/dL (3.4-4.8); ANION GAP 4 (5-15); ASPARTATE AMINOTRANSFERASE 56 U/L (10-37); CALCIUM 7.3 mg/dL (8.4-11.0); CHLORIDE 98 mmol/L (98-107); CREATININE 0.68 mg/dL (0.55-1.30); GLUCOSE 185 mg/dL (70-99); PHOSPHORUS 4.1 mg/dL (2.7-4.5); TOTAL BILIRUBIN 0.2 mg/dL (0.0-1.0); UREA NITROGEN, BLOOD 24 mg/dL (8-21)
[2023-01-03 07:41] VITALS: BP_SYST 103
[2023-01-03 08:35] LABS: BASOPHILS % (AUTO) 0.3 % (0.0-2.0); EOSINOPHILS # (AUTO) 0.1 K/uL (0.0-0.4); EOSINOPHILS % (AUTO) 0.8 % (0.0-4.0); HEMATOCRIT 24.6 % (36-48); HEMOGLOBIN 8.3 g/dL (12.0-16.0); LYMPHOCYTES # (AUTO) 2.2 K/uL (1.0-5.5); LYMPHOCYTES % (AUTO) 31.5 % (20.5-51.5); MEAN CORPUSCULAR HEMOGLOBIN 31 pg (27-31); MEAN CORPUSCULAR HGB CONC 34 % (32-36); MEAN CORPUSCULAR VOLUME 91 fL (79.0-98.0); MONOCYTES # (AUTO) 0.5 K/uL (0.0-1.0); MONOCYTES % (AUTO) 7.9 % (1.7-9.3); NEUTROPHILS # (AUTO) 4.1 K/uL (1.8-7.7); NEUTROPHILS % (AUTO) 59.5 % (40.0-70.0); PLATELET COUNT (AUTO) 254 K/uL (130-430); RED BLOOD CELL COUNT(AUTO) 2.71 MIL/uL (4.2-6.2); RED CELL DISTRIBUTION WIDTH 15.9 % (9.0-15.0); WHITE BLOOD COUNT (AUTO) 6.8 K/uL (4.8-10.8)
[2023-01-03] MEDS: FUROSEMIDE 20 MG TABLET PO SCH (09:00)
[2023-01-03] MEDS: CARVEDILOL 25 MG TABLET (COREG) PO SCH ×2 (09:00→21:00)
[2023-01-03] MEDS: GABAPENTIN 400 MG CAPSULE PO SCH ×3 (09:00→21:00)
[2023-01-03] MEDS: PANTOPRAZOLE SODIUM 40 MG TAB PO SCH (09:36)
[2023-01-03 11:45] VITALS: BP_SYST 136
[2023-01-03 16:58] VITALS: BP_SYST 111
[2023-01-03 20:00] VITALS: BP_SYST 121
[2023-01-03] MEDS: traZODone HCL 50 MG TABLET (DESYREL) PO SCH (20:46)
[2023-01-03] MEDS: ATORVASTATIN 20 MG TABLET PO SCH (21:00)
[2023-01-03] MEDS: DULoxetine HCL 20 MG CAPSULE.DR PO SCH (21:00)
[2023-01-03] MEDS ORDERED: POTASSIUM ACETATE IV SCH ×9 (21:00)
[2023-01-03] MEDS ORDERED: TPN CENTRAL IV SCH ×9 (21:00)
[2023-01-03] MEDS ORDERED: [UNRECOGNIZED DRUG - OTHER] IV SCH ×9 (21:00)
[2023-01-03] MEDS ORDERED: SODIUM CHLORIDE IV SCH ×9 (21:00)
[2023-01-03] MEDS ORDERED: ALTEPLASE 100 MG VIAL IVP ONE (22:45)
[2023-01-03] MEDS ORDERED: ALTEPLASE 2 MG VIAL MC ONE (23:00)
[2023-01-04] VITALS (7 sets, daily range): BP systolic 100–127
[2023-01-04] MEDS: GABAPENTIN 400 MG CAPSULE PO SCH ×3 (08:28→21:00)
[2023-01-04] MEDS: AMIODARONE HCL 200 MG TABLET PO SCH (08:28)
[2023-01-04] MEDS: CARVEDILOL 25 MG TABLET (COREG) PO SCH ×2 (08:28→21:00)
[2023-01-04] MEDS: PANTOPRAZOLE SODIUM 40 MG TAB PO SCH (08:31)
[2023-01-04] MEDS: FUROSEMIDE 20 MG TABLET PO SCH (08:31)
[2023-01-04] MEDS: traZODone HCL 50 MG TABLET (DESYREL) PO SCH (20:32)
[2023-01-04] MEDS: ATORVASTATIN 20 MG TABLET PO SCH (21:00)
[2023-01-04] MEDS: DULoxetine HCL 20 MG CAPSULE.DR PO SCH (21:00)
[2023-01-05 00:44] VITALS: BP_SYST 117
[2023-01-05 07:59] LABS: ALANINE AMINOTRANSFERASE 86 U/L (12-78); ALBUMIN 1.4 g/dL (3.4-4.8); ANION GAP 8 (5-15); ASPARTATE AMINOTRANSFERASE 104 U/L (10-37); CHLORIDE 100 mmol/L (98-107); CREATININE 0.89 mg/dL (0.55-1.30); GLUCOSE 108 mg/dL (70-99); PHOSPHORUS 4.6 mg/dL (2.7-4.5); TOTAL BILIRUBIN 0.2 mg/dL (0.0-1.0); UREA NITROGEN, BLOOD 17 mg/dL (8-21)
[2023-01-05 08:42] LABS: BASOPHILS % (AUTO) 0.6 % (0.0-2.0); EOSINOPHILS % (AUTO) 0.3 % (0.0-4.0); HEMATOCRIT 26.4 % (36-48); HEMOGLOBIN 8.8 g/dL (12.0-16.0); LYMPHOCYTES # (AUTO) 1.5 K/uL (1.0-5.5); LYMPHOCYTES % (AUTO) 22.2 % (20.5-51.5); MEAN CORPUSCULAR HEMOGLOBIN 30 pg (27-31); MEAN CORPUSCULAR HGB CONC 33 % (32-36); MEAN CORPUSCULAR VOLUME 91 fL (79.0-98.0); MONOCYTES # (AUTO) 0.7 K/uL (0.0-1.0); MONOCYTES % (AUTO) 10.8 % (1.7-9.3); NEUTROPHILS # (AUTO) 4.5 K/uL (1.8-7.7); NEUTROPHILS % (AUTO) 66.1 % (40.0-70.0); PLATELET COUNT (AUTO) 430 K/uL (130-430); RED BLOOD CELL COUNT(AUTO) 2.91 MIL/uL (4.2-6.2); RED CELL DISTRIBUTION WIDTH 15.6 % (9.0-15.0); WHITE BLOOD COUNT (AUTO) 6.8 K/uL (4.8-10.8)
[2023-01-05 08:48] VITALS: BP_SYST 126
[2023-01-05] MEDS: GABAPENTIN 400 MG CAPSULE PO SCH ×3 (09:17→21:00)
[2023-01-05] MEDS: CARVEDILOL 25 MG TABLET (COREG) PO SCH ×2 (09:18→21:00)
[2023-01-05] MEDS: PANTOPRAZOLE SODIUM 40 MG TAB PO SCH (09:18)
[2023-01-05] MEDS: FUROSEMIDE 20 MG TABLET PO SCH (09:19)
[2023-01-05 11:40] VITALS: BP_SYST 119
[2023-01-05 16:58] VITALS: BP_SYST 126
[2023-01-05 20:15] VITALS: BP_SYST 140
[2023-01-05] MEDS: ATORVASTATIN 20 MG TABLET PO SCH (21:00)
[2023-01-05] MEDS: DULoxetine HCL 20 MG CAPSULE.DR PO SCH (21:00)
[2023-01-05] MEDS: traZODone HCL 50 MG TABLET (DESYREL) PO SCH (21:04)
[2023-01-06 07:25] LABS: BASOPHILS % (AUTO) 0.6 % (0.0-2.0); EOSINOPHILS % (AUTO) 0.4 % (0.0-4.0); HEMATOCRIT 27.6 % (36-48); HEMOGLOBIN 9.3 g/dL (12.0-16.0); LYMPHOCYTES # (AUTO) 1.4 K/uL (1.0-5.5); LYMPHOCYTES % (AUTO) 24.8 % (20.5-51.5); MEAN CORPUSCULAR HEMOGLOBIN 30 pg (27-31); MEAN CORPUSCULAR HGB CONC 34 % (32-36); MEAN CORPUSCULAR VOLUME 90 fL (79.0-98.0); MONOCYTES # (AUTO) 0.7 K/uL (0.0-1.0); MONOCYTES % (AUTO) 12.4 % (1.7-9.3); NEUTROPHILS # (AUTO) 3.6 K/uL (1.8-7.7); NEUTROPHILS % (AUTO) 61.8 % (40.0-70.0); PLATELET COUNT (AUTO) 451 K/uL (130-430); RED BLOOD CELL COUNT(AUTO) 3.06 MIL/uL (4.2-6.2); RED CELL DISTRIBUTION WIDTH 15.7 % (9.0-15.0); WHITE BLOOD COUNT (AUTO) 5.8 K/uL (4.8-10.8)
[2023-01-06 07:38] LABS: ALANINE AMINOTRANSFERASE 65 U/L (12-78); ALBUMIN 1.5 g/dL (3.4-4.8); ANION GAP 8 (5-15); ASPARTATE AMINOTRANSFERASE 64 U/L (10-37); CALCIUM 7.9 mg/dL (8.4-11.0); CHLORIDE 103 mmol/L (98-107); CREATININE 0.84 mg/dL (0.55-1.30); GLUCOSE 86 mg/dL (70-99); TOTAL BILIRUBIN 0.3 mg/dL (0.0-1.0); UREA NITROGEN, BLOOD 14 mg/dL (8-21)
[2023-01-06 08:00] VITALS: BP_SYST 139
[2023-01-06] MEDS: FUROSEMIDE 20 MG TABLET PO SCH (09:00)
[2023-01-06] MEDS: GABAPENTIN 400 MG CAPSULE PO SCH ×3 (09:00→20:55)
[2023-01-06] MEDS: AMIODARONE HCL 200 MG TABLET PO SCH (09:00)
[2023-01-06] MEDS: CARVEDILOL 25 MG TABLET (COREG) PO SCH ×2 (09:25→20:47)
[2023-01-06] MEDS: PANTOPRAZOLE SODIUM 40 MG TAB PO SCH (09:25)
[2023-01-06 11:40] VITALS: BP_SYST 125
[2023-01-06 12:00] VITALS: BP_SYST 121
[2023-01-06 15:20] VITALS: BP_SYST 140
[2023-01-06 19:00] VITALS: BP_SYST 124
[2023-01-06 20:00] VITALS: BP_SYST 116
[2023-01-06] MEDS: traZODone HCL 50 MG TABLET (DESYREL) PO SCH (20:52)
[2023-01-06] MEDS: ATORVASTATIN 20 MG TABLET PO SCH (20:54)
[2023-01-06] MEDS: DULoxetine HCL 20 MG CAPSULE.DR PO SCH (20:55)
[2023-01-07] VITALS: BP_SYST 126
[2023-01-07 04:00] VITALS: BP_SYST 116
[2023-01-07 08:00] VITALS: BP_SYST 117
[2023-01-07] MEDS: GABAPENTIN 400 MG CAPSULE PO SCH ×3 (09:00→21:00)
[2023-01-07] MEDS: FUROSEMIDE 20 MG TABLET PO SCH (09:00)
[2023-01-07] MEDS: PANTOPRAZOLE SODIUM 40 MG TAB PO SCH (09:07)
[2023-01-07] MEDS: CARVEDILOL 25 MG TABLET (COREG) PO SCH ×2 (09:08→20:29)
[2023-01-07 12:00] VITALS: BP_SYST 119
[2023-01-07 16:50] VITALS: BP_SYST 118
[2023-01-07 19:00] VITALS: BP_SYST 118
[2023-01-07] MEDS: traZODone HCL 50 MG TABLET (DESYREL) PO SCH (20:29)
[2023-01-07] MEDS: ATORVASTATIN 20 MG TABLET PO SCH (21:00)
[2023-01-07] MEDS: DULoxetine HCL 20 MG CAPSULE.DR PO SCH (21:00)
[2023-01-08] VITALS (7 sets, daily range): BP systolic 106–118
[2023-01-08] MEDS: PANTOPRAZOLE SODIUM 40 MG TAB PO SCH (08:48)
[2023-01-08] MEDS: GABAPENTIN 400 MG CAPSULE PO SCH ×3 (08:49→21:53)
[2023-01-08] MEDS: CARVEDILOL 25 MG TABLET (COREG) PO SCH ×2 (08:49→21:52)
[2023-01-08] MEDS: FUROSEMIDE 20 MG TABLET PO SCH (08:49)
[2023-01-08] MEDS: DULoxetine HCL 20 MG CAPSULE.DR PO SCH (21:52)
[2023-01-08] MEDS: traZODone HCL 50 MG TABLET (DESYREL) PO SCH (21:52)
[2023-01-08] MEDS: ATORVASTATIN 20 MG TABLET PO SCH (21:52)
[2023-01-09 00:40] VITALS: BP_SYST 122
[2023-01-09] MEDS: AMIODARONE HCL 200 MG TABLET PO SCH (09:00)
[2023-01-09] MEDS: GABAPENTIN 400 MG CAPSULE PO SCH ×2 (09:00→15:00)
[2023-01-09] MEDS: FUROSEMIDE 20 MG TABLET PO SCH (09:00)
[2023-01-09] MEDS: CARVEDILOL 25 MG TABLET (COREG) PO SCH (10:14)
[2023-01-09] MEDS: PANTOPRAZOLE SODIUM 40 MG TAB PO SCH (10:14)
[2023-01-09] MEDS: ACETAMINOPHEN 325 MG TABLET PO PRN (10:56)
[2023-01-09 15:26] VITALS: BP_SYST 120
[2023-01-09 18:32] VITALS: BP_SYST 131
[2023-01-09 18:33] VITALS: BP_SYST 128
== END 2023-01-09 17:00 | DRG 853 ==
LOC: SED 09:35 → SIC 13:46 → STU 12-31 19:38 → SMU 01-05 19:40
PROVIDERS: ADMIT Preventive Medicine Preventive Medicine/Occupational Environmental Medicine; ATTEND Preventive Medicine Preventive Medicine/Occupational Environmental Medicine
PROC: 0DQ80ZZ Repair Small Intestine, Open Approach (ICD-10-PCS; 2022-12-23)
PROC: 0DU607Z Supplement Stomach with Autologous Tissue Substitute, Open Approach (ICD-10-PCS; 2022-12-23)
PROC: 0BH17EZ Insertion of Endotracheal Airway into Trachea, Via Natural or Artificial Opening (ICD-10-PCS; 2022-12-23)
PROC: 5A1955Z Respiratory Ventilation, Greater than 96 Consecutive Hours (ICD-10-PCS; principal; 2022-12-23 18:05)
PROC: 4A00X4Z Measurement of Central Nervous Electrical Activity, External Approach (ICD-10-PCS; 2022-12-29)
DX: A41.9 Sepsis, unspecified organism (principal); E43 Unspecified severe protein-calorie malnutrition; J96.00 Acute respiratory failure, unspecified whether with hypoxia or hypercapnia; K63.1 Perforation of intestine (nontraumatic); K65.9 Peritonitis, unspecified; R65.21 Severe sepsis with septic shock; Z99.11 Dependence on respirator [ventilator] status; E87.1 Hypo-osmolality and hyponatremia; G93.40 Encephalopathy, unspecified; K92.2 Gastrointestinal hemorrhage, unspecified; N17.9 Acute kidney failure, unspecified; E78.5 Hyperlipidemia, unspecified; E83.39 Other disorders of phosphorus metabolism; E83.51 Hypocalcemia; E83.52 Hypercalcemia; Z96.653 Presence of artificial knee joint, bilateral; E88.09 Other disorders of plasma-protein metabolism, not elsewhere classified; E87.6 Hypokalemia; D69.6 Thrombocytopenia, unspecified; D64.9 Anemia, unspecified; Z20.822 Contact with and (suspected) exposure to COVID-19; R13.10 Dysphagia, unspecified; E87.5 Hyperkalemia; I10 Essential (primary) hypertension; E66.9 Obesity, unspecified; M19.90 Unspecified osteoarthritis, unspecified site; Z88.2 Allergy status to sulfonamides; Z88.8 Allergy status to other drugs, medicaments and biological substances; Z88.1 Allergy status to other antibiotic agents; Z91.011 Allergy to milk products; Z98.84 Bariatric surgery status; Z79.82 Long term (current) use of aspirin; Z68.31 Body mass index [BMI] 31.0-31.9, adult
CPT/HCPCS: 36415; 36600; 70450-TC; 71045; 74240-TC; 76376; 80048; 80053; 81003; 82272; 82803-TC; 82962; 83690; 83735; 83880; 84100; 84478; 85025; 85610-TC; 85651-TC; 85730-TC; 86140; 86886; 86900; 86901; 87070-TC; 87081; 87205-TC; 92610-GN; 93005; 94002; 94003; 94640; 94760; 95816; 96361; 96365; 96367; 96375; 97110-GP; 97112-GP; 97530-GP; 99291; G0378; J0330; J0610; J1450; J1815; J2060; J2704; J2760; J2997; J3010; J3105; J3370; J3475; J3480; J3490; J7050; J7120; J7131; Q9963